=== PATIENT | male | born 1950 | race Caucasian/White ===

== ENCOUNTER 2020-01-17 10:54 | Emergency (ER) | payer OTHER ==
[~2020-01-17] VITALS: Ht 172.7 cm; Wt 76.2 kg
[2020-01-17 11:01] VITALS: BP 137/76; Ht 172.7 cm; Wt 76.2 kg
== END 2020-01-17 11:53 | disposition home or self-care (01) ==
LOC: ED 10:54
DX: T15.02XA Foreign body in cornea, left eye, initial encounter (principal); S00.212A Abrasion of left eyelid and periocular area, initial encounter; E11.9 Type 2 diabetes mellitus without complications; Z98.890 Other specified postprocedural states; W45.8XXA Other foreign body or object entering through skin, initial encounter; Y93.89 Activity, other specified; Y92.89 Other specified places as the place of occurrence of the external cause; Y99.8 Other external cause status